=== PATIENT | female | born 1970 | race Caucasian/White ===

== ENCOUNTER 2017-06-19 12:39 | Emergency (ER) | payer OTHER ==
[~2017-06-19] VITALS: Ht 162.6 cm; Wt 50.0 kg
[2017-06-19 13:23] LABS: HEMATOCRIT 44.6 % (37.0-47.0); HEMOGLOBIN 14.7 g/dL (12.5-16.0); MEAN CELL VOLUME 99 fl (78-100); MEAN CORPUSCULAR HEMOGLOBIN 33 pg (27-31); MEAN CORPUSCULAR HGB CONC 33 g/dL (33-37); MEAN PLATELET VOLUME 9.8 fl (7.4-10.4); PLATELET COUNT 180 K/mm3 (130-400); RED BLOOD COUNT 4.51 M/mm3 (4.10-5.30); RED CELL DISTRIBUTION WIDTH 12.8 % (11.5-14.5); WHITE BLOOD COUNT 18.7 K/mm3 (4.8-10.8)
[2017-06-19 13:33] LABS: ALBUMIN 4.5 g/dL (3.5-5.0); BUN/CREATININE RATIO 22.4 (6.0-26.0); CALCIUM 9.3 mg/dL (8.4-10.2); POTASSIUM 3.9 mmol/L (3.6-5.0); TOTAL BILIRUBIN 0.9 mg/dL (0.2-1.3); TOTAL PROTEIN 8.5 g/dL (6.3-8.2)
[2017-06-19 13:36] LABS: BAND 1 % (0-10); LYMPHOCYTE 1 % (20-51); MONOCYTE 12 % (3-10); NEUTROPHILS 86 % (42-75)
[2017-06-19 17:42] LABS: URINE APPEARANCE HAZY; URINE BILIRUBIN NEGATIVE (NEGATIVE); URINE BLOOD TRACE (NEGATIVE); URINE COLOR YELLOW; URINE GLUCOSE NEGATIVE (NEGATIVE); URINE KETONE NEGATIVE (NEGATIVE); URINE LEUKOCYTE ESTERASE NEGATIVE (NEGATIVE); URINE NITRATE NEGATIVE (NEGATIVE); URINE PROTEIN(semi-quant) NEGATIVE (NEGATIVE); URINE UROBILINOGEN NORMAL (NORMAL); URINE WBC 0-1 /hpf (0-3)
[2017-06-19 17:43] LABS: URINE MUCUS PRESENT (NOT PRESENT)
[2017-06-19] MEDS ORDERED: ZOFRAN ODT4 MG PO (19:48)
[2017-06-19] MEDS ORDERED: NORCO 325 MG-51 TA1 PO (19:49)
[2017-06-19 20:00] VITALS: BP 117/70
== END 2017-06-19 20:00 | disposition home or self-care (01) ==
LOC: ED 12:39
PROVIDERS: Family Medicine
DX: A08.4 Viral intestinal infection, unspecified (principal); R42 Dizziness and giddiness; Z87.19 Personal history of other diseases of the digestive system
CPT/HCPCS: J1885; J2405; J3490; J7030; Q9967

== ENCOUNTER → 2018-02-21 | Outpatient (CLI) | payer BC ==
[~2018-02-21] MED LIST: NORCO 325 MG-51 TA1 PO; ZOFRAN ODT4 MG PO
[2018-02-21 18:31] LABS: CLUE CELLS PRESENT (Not Observd)
== END ==
LOC: LAB 16:14
PROVIDERS: Physician Assistant
DX: N89.8 Other specified noninflammatory disorders of vagina (principal); R30.0 Dysuria
CPT/HCPCS: Q0111

== ENCOUNTER → 2018-10-10 | Day surgery (SDC) | payer BC | LOC: MSO 10:06 | DX: K22.2 Esophageal obstruction (principal); J45.909 Unspecified asthma, uncomplicated; F41.9 Anxiety disorder, unspecified; K85.90 Acute pancreatitis without necrosis or infection, unspecified; Z90.710 Acquired absence of both cervix and uterus; Z79.52 Long term (current) use of systemic steroids | CPT/HCPCS: 00731; C1769; J2704; J7120 ==

== ENCOUNTER 2019-01-19 11:50 | Emergency (ER) | payer BC ==
[~2019-01-19] VITALS: Wt 54.1 kg
[2019-01-19] MEDS ORDERED: ESTRADIOL0.5 M1 PO (12:02)
[2019-01-19 12:34] LABS: EOS # 0.2 (0.04-0.40); EOS % 2.6 % (1.0-5.0); HEMOGLOBIN 14.5 g/dL (12.5-16.0); LYMPH# 1.6 (1.50-4.00); MEAN CELL VOLUME 96 fl (78-100); MEAN CORPUSCULAR HEMOGLOBIN 32 pg (27-31); MEAN CORPUSCULAR HGB CONC 33 g/dL (33-37); MEAN PLATELET VOLUME 9.7 fl (7.4-10.4); MONO # 0.3 (0.20-0.80); NEU # 4.1 (1.40-6.50); PLATELET COUNT 207 K/mm3 (130-400); RED CELL DISTRIBUTION WIDTH 12.6 % (11.5-14.5); WHITE BLOOD COUNT 6.1 K/mm3 (4.8-10.8)
[2019-01-19 12:42] LABS: ALBUMIN 4.6 g/dL (3.5-5.0); POTASSIUM 3.9 mmol/L (3.5-5.1)
[2019-01-19 12:43] LABS: URINE APPEARANCE HAZY; URINE COLOR YELLOW
[2019-01-19 12:44] LABS: URINE BILIRUBIN NEGATIVE (NEGATIVE); URINE BLOOD NEGATIVE (NEGATIVE); URINE GLUCOSE NEGATIVE (NEGATIVE); URINE KETONE NEGATIVE (NEGATIVE); URINE LEUKOCYTE ESTERASE NEGATIVE (NEGATIVE); URINE NITRATE NEGATIVE (NEGATIVE); URINE PROTEIN(semi-quant) NEGATIVE (NEGATIVE); URINE UROBILINOGEN NORMAL (NORMAL)
[2019-01-19 12:45] LABS: TOTAL PROTEIN 8.3 g/dL (6.4-8.3)
[2019-01-19 12:47] LABS: TOTAL BILIRUBIN 0.9 mg/dL (0.2-1.2)
[2019-01-19 14:36] VITALS: BP 138/82
== END 2019-01-19 14:35 | disposition home or self-care (01) ==
LOC: ED 11:50
PROVIDERS: Nurse Practitioner Primary Care
DX: J02.9 Acute pharyngitis, unspecified (principal); E04.1 Nontoxic single thyroid nodule; R51 Headache; Z90.710 Acquired absence of both cervix and uterus
CPT/HCPCS: Q9967

== ENCOUNTER 2020-05-30 09:00 | Outpatient (RCR) | payer OTHER, BC ==
[~2020-05-30 09:00] MED LIST changes: +ESTRADIOL0.5 M1 PO
== END 2020-07-11 17:00 | disposition home or self-care (01) ==
LOC: PT 09:00
DX: M54.2 Cervicalgia (principal)

== ENCOUNTER 2023-06-17 11:06 | Emergency (ER) | payer OTHER ==
[~2023-06-17] VITALS: Ht 162.6 cm; Wt 55.5 kg
[2023-06-17] MEDS ORDERED: Ondansetron 4 MG/2 ML VIAL IV ONE (11:45)
[2023-06-17 11:56] LABS: ALBUMIN 4.5 g/dL (3.5-5.0)
[2023-06-17 11:57] LABS: BASO # 0.03 K/mm3 (0.02-0.10); EOS # 0.01 K/mm3 (0.04-0.40); EOS % 0.1 % (1.0-5.0); HEMATOCRIT 43.6 % (37.0-47.0); HEMOGLOBIN 14.7 g/dL (12.5-16.0); LYMPH# 1.41 K/mm3 (1.50-4.00); MEAN CELL VOLUME 95 fl (78-100); MEAN CORPUSCULAR HEMOGLOBIN 32 pg (27-31); MEAN CORPUSCULAR HGB CONC 34 g/dL (33-37); MEAN PLATELET VOLUME 9.6 fl (7.4-10.4); MONO # 0.38 K/mm3 (0.20-0.80); NEU # 10.59 K/mm3 (1.40-6.50); PLATELET COUNT 260 K/mm3 (130-400); RED BLOOD COUNT 4.59 M/mm3 (4.10-5.30); RED CELL DISTRIBUTION WIDTH 12.4 % (11.5-14.5); WHITE BLOOD COUNT 12.5 K/mm3 (4.8-10.8)
[2023-06-17 11:59] LABS: TOTAL PROTEIN 7.9 g/dL (6.4-8.3)
[2023-06-17 12:01] LABS: TOTAL BILIRUBIN 0.6 mg/dL (0.2-1.2)
[2023-06-17] MEDS ORDERED: NS 1,000 ML IV SCH (12:15)
[2023-06-17 12:26] LABS: TROPONIN-I < 0.030 ng/mL (0.00-0.033)
[2023-06-17 13:28] LABS: D-DIMER 0.21 mg/L FEU (0.15-0.50)
[2023-06-17 13:42] LABS: URINE APPEARANCE CLEAR (CLEAR); URINE BILIRUBIN NEGATIVE (NEGATIVE); URINE BLOOD NEGATIVE (NEGATIVE); URINE COLOR YELLOW (YELLOW); URINE GLUCOSE NEGATIVE (NEGATIVE); URINE KETONE NEGATIVE (NEGATIVE); URINE LEUKOCYTE ESTERASE NEGATIVE (NEGATIVE); URINE NITRATE NEGATIVE (NEGATIVE); URINE PROTEIN(semi-quant) NEGATIVE (NEGATIVE)
[2023-06-17 13:43] LABS: URINE WBC 0-1 /hpf (0-3)
[2023-06-17] MEDS ORDERED: Meclizine 12.5 MG TAB PO ONE (13:45)
[2023-06-17] MEDS ORDERED: ONDANSETRON HYDR4 MG PO (14:26)
[2023-06-17] MEDS ORDERED: MECLIZINE PO (14:26)
[2023-06-17 15:30] VITALS: BP 130/81
== END 2023-06-17 15:30 | disposition home or self-care (01) ==
LOC: ED 11:06
PROVIDERS: Physician Assistant
DX: R11.2 Nausea with vomiting, unspecified (principal); R42 Dizziness and giddiness; R07.89 Other chest pain; D72.829 Elevated white blood cell count, unspecified; Z82.41 Family history of sudden cardiac death
CPT/HCPCS: J2405; J7030